=== PATIENT | female | born 1980 | race Caucasian/White ===

== ENCOUNTER 2020-08-31 09:54 | Outpatient (REF) | payer OTHER, SELFPAY ==
[2020-08-31 17:34] LABS: CT PCR NOT DETECTED (Not Detect.); NG PCR NOT DETECTED (Not Detect.)
[2020-09-03 03:21] LABS: HPV mRNA E6/E7 rflx Not Detected (Not Detected)
== END 2020-08-31 09:55 | disposition home or self-care (01) ==
LOC: HO.LAB 09:54
PROVIDERS: PCP Internal Medicine; Visit Provider Advanced Practice Midwife
DX: Z01.419 Encounter for gynecological examination (general) (routine) without abnormal findings (principal); Z11.3 Encounter for screening for infections with a predominantly sexual mode of transmission; Z11.51 Encounter for screening for human papillomavirus (HPV); Z20.2 Contact with and (suspected) exposure to infections with a predominantly sexual mode of transmission
CPT/HCPCS: 36415; 87491; 87591; 87624; 88142

== ENCOUNTER 2020-10-10 14:41 | Outpatient (REF) | payer OTHER, SELFPAY ==
--- NOTE | ~2020-10-10 | MM_ITS ---
EXAMINATION: MM DIAGNOSTIC DIGITAL BREAST TOMOSYNTHESIS, BILATERAL US DIAGNOSTIC ULTRASOUND BREAST, RIGHT CLINICAL INFORMATION: 40-year-old with pain upper right breast, recently subsiding. No palpable mass or discharge. No known family history breast cancer. No prior breast imaging. Bilateral tattoos. The lifetime risk of breast cancer based on the Tyrer-Cuzick Model is 12%. COMPARISON: None (current study represents initial baseline exam). TECHNIQUE: Digital breast tomosynthesis is performed in both the craniocaudal and mediolateral oblique views along with computer-aided detection (CAD). Synthesized 2D images are generated from the tomosynthesis. Additional bilateral 2-D MLO views are obtained. Ultrasound right breast is targeted to the area of clinical concern 11:00 through 2:00 position as well as additional imaging of the axilla. Grayscale imaging and color Doppler are performed without and with harmonics. FINDINGS: There are scattered areas of fibroglandular density (ACR BI-RADS breast composition Category b). There are no significant masses, abnormal calcifications, or other abnormalities. There is no skin thickening or coarsening of the Sukumar's ligaments. No duct ectasia. No suspicious finding. There is benign coarse high attenuation density within 2 otherwise unremarkable left axillary nodes, most likely related to tattoo pigment. Old granulomatous infection may have similar appearance. Ultrasound right breast demonstrates no cystic or solid mass, architectural abnormality, or focal duct ectasia. No skin thickening or edema tracking in soft tissue planes. No lymphadenopathy. Results are discussed with the patient at time of visit. MM/MM tomosynthesis diagnostic BI IMPRESSION: 1. No mammographic evidence of malignancy or focal acute inflammatory changes. 2. Probable tattoo pigment in 2 otherwise unremarkable left axillary nodes. Old granulomatous infection may have a similar appearance. 3. Unremarkable targeted right breast ultrasound. ASSESSMENT: BI-RADS 2: Benign RECOMMENDATION: 1. Patient's recent breast pain should be managed based on the clinical impression. 2. Otherwise, routine annual screening mammography. This patient's information was entered into a reminder system with a target due date for their next mammogram.
== END 2020-10-10 14:42 | disposition home or self-care (01) ==
LOC: HO.MAMMO 14:41
PROVIDERS: PCP Internal Medicine; Visit Provider Advanced Practice Midwife
DX: N64.4 Mastodynia (principal)
CPT/HCPCS: 76642; 77062; 77066

== ENCOUNTER 2022-08-04 12:47 | Emergency (ER) | payer OTHER, SELFPAY ==
--- NOTE | ~2022-08-04 | XR_ITS ---
EXAMINATION: XR chest 1V CLINICAL INFORMATION: Reason for Exam chest pain COMPARISON: None TECHNIQUE: XR chest 1V Tubes and lines: None Lungs and pleura: Mild patchy opacification over the left upper lobe possibly patchy infiltrate versus less commonly lung nodule. Lungs otherwise are clear. Costophrenic angles are sharp. Left parahilar opacity probably platelike atelectasis or prominent vessel. Heart and mediastinum: The mediastinum is within normal limits.. Bones/soft tissue: Skeletal structures included are normal for patient's age. XR/XR chest 1V IMPRESSION: * Mild patchy opacification over the left upper lobe possibly patchy infiltrate versus less commonly lung nodule. Attention to follow-up chest x-ray one month after completion of treatment recommended to ensure complete clearance and exclude underlying pathology. * Left parahilar opacity probably platelike atelectasis or prominent vessel. * No pleural effusion.
--- NOTE | 2022-08-04 12:49 | ED_ITS ---
HPI - General Adult General Chief complaint: General Medical <LELIA Disla - Last Filed: 08/04/22 12:50> Stated complaint: Chest Pain/ Back pain <LELIA Disla - Last Filed: 08/04/22 12:50> Time Seen by Provider: 08/04/22 13:24 <LELIA Disla - Last Filed: 08/04/22 12:50> Source: patient <Eddi Miles MD - Last Filed: 08/04/22 16:35> Mode of arrival: ambulatory <Eddi Miles MD - Last Filed: 08/04/22 16:35> Limitations: no limitations <Eddi Miles MD - Last Filed: 08/04/22 16:35> History of Present Illness HPI narrative: Patient woke up with chest and back pain. Denies injury. No prior history of chest pain, no recent EKG. Pain started at 4am. Worse with deep breathing. Pain is left sided, tight, feels like she cant take a deep breath. Patient currently pain free <Eddi Miles MD - Last Filed: 08/04/22 16:35> Onset (ago): hour(s) <Eddi Miles MD - Last Filed: 08/04/22 16:35> Location: chest <Eddi Miles MD - Last Filed: 08/04/22 16:35> Radiation: back <Eddi Miles MD - Last Filed: 08/04/22 16:35> Severity: mild <Eddi Miles MD - Last Filed: 08/04/22 16:35> Pain Consistency: intermittent <Eddi Miles MD - Last Filed: 08/04/22 16:35> Exacerbating factors: other (deep breathing) <Eddi Miles MD - Last Filed: 08/04/22 16:35> Related Data Home medications: Home Medications Medication Instructions Recorded Confirmed levonorgestrel 20 mcg/24 hours (8 intrauterine 03/24/21 yrs) 52 mg intrauterine device (Mirena) Previous Rx's Medication Instructions Recorded levofloxacin 500 mg tablet 500 mg PO DAILY 7 days #7 tabs 08/04/22 <LELIA Disla - Last Filed: 08/04/22 12:50> Allergies/adverse reactions: Allergies Allergy/AdvReac Type Severity Reaction Status Date / Time No Known Allergies Allergy Verified 08/31/20 10:39 <LELIA Disla - Last Filed: 08/04/22 12:50> Review of Systems Review of Systems: Yes all other systems are reviewed and are negative <Eddi Miles MD - Last Filed: 08/04/22 16:35> Cardiovascular: Cardiovascular: Reports chest pain <Eddi Miles MD - Last Filed: 08/04/22 16:35> Comments: worse with deep breathing <Eddi Miles MD - Last Filed: 08/04/22 16:35> PMFSH Past Medical History Surgical History: Surgical History Hx of tonsillectomy <LELIA Disla - Last Filed: 08/04/22 12:50> Social History Social History: Social History Alcohol intake: current Advance Directives: No Advance Directives Information Provided: Yes <LELIA Disla - Last Filed: 08/04/22 12:50> Physical Exam ED Vital Signs: Vital Signs - 24 hr 08/04/22 12:50 08/04/22 13:45 08/04/22 15:52 Temperature 97.8 F 99.0 F Pulse Rate 116 H 109 H 94 Respiratory Rate 18 14 14 Blood Pressure 140/93 H 157/103 H 134/85 Pulse Oximetry 98 98 98 Oxygen Delivery Method Room Air Room Air Room Air 08/04/22 16:00 Temperature Pulse Rate 94 Respiratory Rate 20 Blood Pressure 141/89 H Pulse Oximetry 97 Oxygen Delivery Method Room Air BMI result Body Mass Index 29.2 <LELIA Disla - Last Filed: 08/04/22 12:50> Vital Signs - 24 hr 08/04/22 12:50 08/04/22 13:45 08/04/22 15:52 Temperature 97.8 F 99.0 F Pulse Rate 116 H 109 H 94 Respiratory Rate 18 14 14 Blood Pressure 140/93 H 157/103 H 134/85 Pulse Oximetry 98 98 98 Oxygen Delivery Method Room Air Room Air Room Air 08/04/22 16:00 Temperature Pulse Rate 94 Respiratory Rate 20 Blood Pressure 141/89 H Pulse Oximetry 97 Oxygen Delivery Method Room Air BMI result Body Mass Index 29.2 <Eddi Miles MD - Last Filed: 08/04/22 16:35> Const General: healthy appearing <Eddi Miles MD - Last Filed: 08/04/22 16:35> Nutritional Appearance: average body habitus <Eddi Miles MD - Last Filed: 08/04/22 16:35> Orientation/consciousness: oriented to person and patient oriented x3 <Eddi Miles MD - Last Filed: 08/04/22 16:35> Limitations: no limitations <Eddi Miles MD - Last Filed: 08/04/22 16:35> HENMT Head: Yes normal to inspection <Eddi Miles MD - Last Filed: 08/04/22 16:35> Ears: external ears normal <Eddi Miles MD - Last Filed: 08/04/22 16:35> General nose exam: Normal external nose present <Eddi Miles MD - Last Filed: 08/04/22 16:35> Mouth: Normal oral and palatal mucosa present and oropharynx normal <Eddi Miles MD - Last Filed: 08/04/22 16:35> Throat: Yes posterior oropharynx normal <Eddi Miles MD - Last Filed: 08/04/22 16:35> Eyes General: appearance normal, both eyes and all related structures <Eddi Miles MD - Last Filed: 08/04/22 16:35> Neck Neck: Yes normal visual inspection <Eddi Miles MD - Last Filed: 08/04/22 16:35> Chest Chest palpation & inspection: normal inspection of the chest <Eddi Miles MD - Last Filed: 08/04/22 16:35> Resp Auscultation: clear to auscultation bilaterally <Eddi Miles MD - Last Filed: 08/04/22 16:35> Cardio Jugular venous distension: no JVD <Eddi Miles MD - Last Filed: 08/04/22 16:35> Rate: regular rate <Eddi Miles MD - Last Filed: 08/04/22 16:35> Rhythm: regular rhythm <Eddi Miles MD - Last Filed: 08/04/22 16:35> Heart sounds: S1 normal heart sound present and S2 normal heart sound present <Eddi Miles MD - Last Filed: 08/04/22 16:35> GI Inspection: Yes normal to inspection <Eddi Miles MD - Last Filed: 08/04/22 16:35> Palpation (GI): Soft to palpation, nontender and No hepatosplenomegaly present <Eddi Miles MD - Last Filed: 08/04/22 16:35> Auscultation: normal bowel sounds <Eddi Miles MD - Last Filed: 08/04/22 16:35> General: Yes no CVA tenderness <Eddi Miles MD - Last Filed: 08/04/22 16:35> Back/Spine/Pelvis Back: no CVA tenderness <Eddi Miles MD - Last Filed: 08/04/22 16:35> Skin General skin exam: no rashes or lesions noted <Eddi Miles MD - Last Filed: 08/04/22 16:35> Neuro General: oriented to person and patient oriented x3 <Eddi Miles MD - Last Filed: 08/04/22 16:35> Cranial nerves: Yes CN's II-XII intact bilaterally <Eddi Miles MD - Last Filed: 08/04/22 16:35> Motor exam (neuro): 5/5 motor strength present throughout <Eddi Miles MD - Last Filed: 08/04/22 16:35> Extrem General: Yes normal to inspection <Eddi Miles MD - Last Filed: 08/04/22 16:35> Psych Appearance: grossly normal <Eddi Miles MD - Last Filed: 08/04/22 16:35> Course Course Course Narrative: RME performed by Silvia El PA-C. Patient is a 41 year old female presenting to the emergency department with chest and back pain. Patient states that the pain started in the middle of the night last night and she is concerned she pulled something in her back by coughing. CXR, EKG, labs ordered. Patient placed back in the waiting room pending room availability and results. <LELIA Disla - Last Filed: 08/04/22 12:50> Reevaluation(s) Reevaluation #1: With WBC of 16 and left upper lobe infiltrate I wll place on levaquin for pneumonia. Negative troponins despite abnormal EKG will dc home <Eddi Miles MD - Last Filed: 08/04/22 16:35> Time: 16:32 <Eddi iMles MD - Last Filed: 08/04/22 16:35> Medications Administered Discontinued Medications Generic Name Dose Route Start Last Admin Trade Name Freq PRN Reason Stop Dose Admin Aspirin 162 mg 08/04/22 13:37 08/04/22 13:43 Aspirin Enteric Coated 81 Mg Tablet. PO 08/04/22 13:38 162 mg ONCE ONE Administration Levofloxacin 500 mg 08/04/22 15:54 08/04/22 16:20 Levofloxacin 500 Mg Tablet PO 08/04/22 15:55 500 mg ONCE ONE Administration <LELIA Disla - Last Filed: 08/04/22 12:50> Medications Administered Discontinued Medications Generic Name Dose Route Start Last Admin Trade Name Freq PRN Reason Stop Dose Admin Aspirin 162 mg 08/04/22 13:37 08/04/22 13:43 Aspirin Enteric Coated 81 Mg Tablet. PO 08/04/22 13:38 162 mg ONCE ONE Administration Levofloxacin 500 mg 08/04/22 15:54 08/04/22 16:20 Levofloxacin 500 Mg Tablet PO 08/04/22 15:55 500 mg ONCE ONE Administration <Eddi Miles MD - Last Filed: 08/04/22 16:35> Medical Decision Making Differential Diagnosis Differential Diagnoses: The differential diagnosis associated with the presentation includes (chest pain, acute coronary syndrome, pneumonia, PE were all considered) <Eddi Miles MD - Last Filed: 08/04/22 16:35> Admission/Observation Consideration of admission/observation: Escalation of care including admission/observation considered (patient with ST depression V3-V6 so admission was considered upon completion of her EKG) <Eddi Miles MD - Last Filed: 08/04/22 16:35> Lab Data MDM Lab Attestation statement: I reviewed the patient's lab results. <Eddi Miles MD - Last Filed: 08/04/22 16:35> Result Diagrams: 08/04/22 13:15 08/04/22 13:15 <LELIA Disla - Last Filed: 08/04/22 12:50> Labs: Lab Results 08/04/22 08/04/22 08/04/22 Range/Units 13:15 13:15 13:15 WBC 16.6 H (4.8-10.8) X10*3/uL RBC 3.93 L (4.20-5.50) X10*6/uL Hgb 13.1 (12.0-16.0) g/dl Hct 37.7 (37.0-47.0) % MCV 95.9 (80.0-98.0) fL MCH 33.3 H (27.0-33.0) pg MCHC 34.7 (31.0-35.0) g/dl RDW 12.2 (11.0-16.0) % Plt Count 224 (160-400) X10*3/uL MPV 8.8 L (9.4-12.3) fL Immature Gran % (Auto) 0.4 (0.0-0.4) % Neut % (Auto) 80.4 H (45-73) % Lymph % (Auto) 8.5 L (20-40) % Burnet % (Auto) 10.1 (2-11) % Eos % (Auto) 0.1 (0-4) % Baso % (Auto) 0.5 (0-2) % Lymph # (Auto) 1.4 (1.2-4.9) X10*3/uL Burnet # (Auto) 1.7 H (0.1-1.2) X10*3/uL Eos # (Auto) 0.0 (0.0-0.4) X10*3/uL Baso # (Auto) 0.1 (0.0-0.2) X10*3/uL Abs Immat Gran (auto) 0.07 H (0.00-0.03) X10*3/uL Absolute Neuts (auto) 13.4 H (2.0-8.3) x10*3/uL Absolute Nucleated RBC 0.000 (0.0-0.012) X10*3/uL Nucleated RBC % (auto) 0.0 (0.0-0.2) /100WBC Smear Tech's Comments VERIFIED D-Dimer High Sensitivty NG/ML Sodium 140 (135-145) mmol/L Potassium 3.5 (3.3-5.1) mmol/L Chloride 104 (96-108) mmol/L Carbon Dioxide 22 (22-29) mmol/L Anion Gap 18 (12-20) BUN 7 L (9-16) mg/dL Creatinine 0.66 (0.5-1.4) mg/dL Estim Creat Clear Calc 108.6 Estimated GFR > 60 Random Glucose 105 (60-115) mg/dL Calcium 9.2 (8.4-10.2) mg/dL Magnesium 1.7 (1.6-2.6) mg/dL Total Bilirubin 0.9 (0.0-1.0) mg/dL AST 30 (5-31) U/L ALT 33 H (0-31) U/L Alkaline Phosphatase 114 (39-117) U/L Troponin I High Sens < 3.5 (<3.5-17.0) ng/L Total Protein 6.9 (6.5-8.0) g/dL Albumin 4.2 (3.5-5.0) g/dL COVID-19 ([facility]) (Negative) COVID-19 Clin Com 08/04/22 08/04/22 08/04/22 Range/Units 13:15 15:57 15:57 WBC (4.8-10.8) X10*3/uL RBC (4.20-5.50) X10*6/uL Hgb (12.0-16.0) g/dl Hct (37.0-47.0) % MCV (80.0-98.0) fL MCH (27.0-33.0) pg MCHC (31.0-35.0) g/dl RDW (11.0-16.0) % Plt Count (160-400) X10*3/uL MPV (9.4-12.3) fL Immature Gran % (Auto) (0.0-0.4) % Neut % (Auto) (45-73) % Lymph % (Auto) (20-40) % Burnet % (Auto) (2-11) % Eos % (Auto) (0-4) % Baso % (Auto) (0-2) % Lymph # (Auto) (1.2-4.9) X10*3/uL Burnet # (Auto) (0.1-1.2) X10*3/uL Eos # (Auto) (0.0-0.4) X10*3/uL Baso # (Auto) (0.0-0.2) X10*3/uL Abs Immat Gran (auto) (0.00-0.03) X10*3/uL Absolute Neuts (auto) (2.0-8.3) x10*3/uL Absolute Nucleated RBC (0.0-0.012) X10*3/uL Nucleated RBC % (auto) (0.0-0.2) /100WBC Smear Tech's Comments D-Dimer High Sensitivty 166 NG/ML Sodium (135-145) mmol/L Potassium (3.3-5.1) mmol/L Chloride (96-108) mmol/L Carbon Dioxide (22-29) mmol/L Anion Gap (12-20) BUN (9-16) mg/dL Creatinine (0.5-1.4) mg/dL Estim Creat Clear Calc Estimated GFR Random Glucose (60-115) mg/dL Calcium (8.4-10.2) mg/dL Magnesium (1.6-2.6) mg/dL Total Bilirubin (0.0-1.0) mg/dL AST (5-31) U/L ALT (0-31) U/L Alkaline Phosphatase (39-117) U/L Troponin I High Sens 5.9 D (<3.5-17.0) ng/L Total Protein (6.5-8.0) g/dL Albumin (3.5-5.0) g/dL COVID-19 ([facility]) Negative (Negative) COVID-19 Clin Com See Note <LELIA Disla - Last Filed: 08/04/22 12:50> Lab Results 08/04/22 08/04/22 08/04/22 Range/Units 13:15 13:15 13:15 WBC 16.6 H (4.8-10.8) X10*3/uL RBC 3.93 L (4.20-5.50) X10*6/uL Hgb 13.1 (12.0-16.0) g/dl Hct 37.7 (37.0-47.0) % MCV 95.9 (80.0-98.0) fL MCH 33.3 H (27.0-33.0) pg MCHC 34.7 (31.0-35.0) g/dl RDW 12.2 (11.0-16.0) % Plt Count 224 (160-400) X10*3/uL MPV 8.8 L (9.4-12.3) fL Immature Gran % (Auto) 0.4 (0.0-0.4) % Neut % (Auto) 80.4 H (45-73) % Lymph % (Auto) 8.5 L (20-40) % Burnet % (Auto) 10.1 (2-11) % Eos % (Auto) 0.1 (0-4) % Baso % (Auto) 0.5 (0-2) % Lymph # (Auto) 1.4 (1.2-4.9) X10*3/uL Burnet # (Auto) 1.7 H (0.1-1.2) X10*3/uL Eos # (Auto) 0.0 (0.0-0.4) X10*3/uL Baso # (Auto) 0.1 (0.0-0.2) X10*3/uL Abs Immat Gran (auto) 0.07 H (0.00-0.03) X10*3/uL Absolute Neuts (auto) 13.4 H (2.0-8.3) x10*3/uL Absolute Nucleated RBC 0.000 (0.0-0.012) X10*3/uL Nucleated RBC % (auto) 0.0 (0.0-0.2) /100WBC Smear Tech's Comments VERIFIED D-Dimer High Sensitivty NG/ML Sodium 140 (135-145) mmol/L Potassium 3.5 (3.3-5.1) mmol/L Chloride 104 (96-108) mmol/L Carbon Dioxide 22 (22-29) mmol/L Anion Gap 18 (12-20) BUN 7 L (9-16) mg/dL Creatinine 0.66 (0.5-1.4) mg/dL Estim Creat Clear Calc 108.6 Estimated GFR > 60 Random Glucose 105 (60-115) mg/dL Calcium 9.2 (8.4-10.2) mg/dL Magnesium 1.7 (1.6-2.6) mg/dL Total Bilirubin 0.9 (0.0-1.0) mg/dL AST 30 (5-31) U/L ALT 33 H (0-31) U/L Alkaline Phosphatase 114 (39-117) U/L Troponin I High Sens < 3.5 (<3.5-17.0) ng/L Total Protein 6.9 (6.5-8.0) g/dL Albumin 4.2 (3.5-5.0) g/dL COVID-19 ([facility]) (Negative) COVID-19 Clin Com 08/04/22 08/04/22 08/04/22 Range/Units 13:15 15:57 15:57 WBC (4.8-10.8) X10*3/uL RBC (4.20-5.50) X10*6/uL Hgb (12.0-16.0) g/dl Hct (37.0-47.0) % MCV (80.0-98.0) fL MCH (27.0-33.0) pg MCHC (31.0-35.0) g/dl RDW (11.0-16.0) % Plt Count (160-400) X10*3/uL MPV (9.4-12.3) fL Immature Gran % (Auto) (0.0-0.4) % Neut % (Auto) (45-73) % Lymph % (Auto) (20-40) % Burnet % (Auto) (2-11) % Eos % (Auto) (0-4) % Baso % (Auto) (0-2) % Lymph # (Auto) (1.2-4.9) X10*3/uL Burnet # (Auto) (0.1-1.2) X10*3/uL Eos # (Auto) (0.0-0.4) X10*3/uL Baso # (Auto) (0.0-0.2) X10*3/uL Abs Immat Gran (auto) (0.00-0.03) X10*3/uL Absolute Neuts (auto) (2.0-8.3) x10*3/uL Absolute Nucleated RBC (0.0-0.012) X10*3/uL Nucleated RBC % (auto) (0.0-0.2) /100WBC Smear Tech's Comments D-Dimer High Sensitivty 166 NG/ML Sodium (135-145) mmol/L Potassium (3.3-5.1) mmol/L Chloride (96-108) mmol/L Carbon Dioxide (22-29) mmol/L Anion Gap (12-20) BUN (9-16) mg/dL Creatinine (0.5-1.4) mg/dL Estim Creat Clear Calc Estimated GFR Random Glucose (60-115) mg/dL Calcium (8.4-10.2) mg/dL Magnesium (1.6-2.6) mg/dL Total Bilirubin (0.0-1.0) mg/dL AST (5-31) U/L ALT (0-31) U/L Alkaline Phosphatase (39-117) U/L Troponin I High Sens 5.9 D (<3.5-17.0) ng/L Total Protein (6.5-8.0) g/dL Albumin (3.5-5.0) g/dL COVID-19 ([facility]) Negative (Negative) COVID-19 Clin Com See Note <Eddi Miles MD - Last Filed: 08/04/22 16:35> Independent Interpretation I performed an independent interpretation of an: Plain X-Ray (CXR: no infiltrate) <Eddi Miles MD - Last Filed: 08/04/22 16:35> Radiology Impression Discussion of test interpretation with radiology: I have reviewed the radiologist's reading. (radiologist read the CXR as left upper lobe infiltrate) <Eddi Miles MD - Last Filed: 08/04/22 16:35> Discharge Plan Discharge Clinical Impression: Pneumonia, Abnormal ECG <LELIA Disla - Last Filed: 08/04/22 12:50> Patient Disposition: Home, Self-Care <LELIA Disla - Last Filed: 08/04/22 12:50> Instructions: Community Acquired Pneumonia (ED) <LELIA Disla - Last Filed: 08/04/22 12:50> Prescriptions: New levofloxacin 500 mg tablet 500 mg PO DAILY 7 Days Qty: 7 0RF No Action Mirena 20 mcg/24 hours (6 yrs) 52 mg intrauterine device intrauterine <LELIA Disla - Last Filed: 08/04/22 12:50> Referrals: Laila Eller PA-C [Primary Care Provider] - 5 days <LELIA Disla - Last Filed: 08/04/22 12:50>
[2022-08-04 12:50] VITALS: BP 140/93; PULSE 116; RESP 18; TEMP 36.6; O2SAT 98; BMI 29.2
--- NOTE | 2022-08-04 12:51 | ECG_ITS ---
Test Reason : CHEST PAIN Blood Pressure : / mmHG Vent. Rate : 115 BPM Atrial Rate : 115 BPM P-R Int : 126 ms QRS Dur : 084 ms QT Int : 326 ms P-R-T Axes : 030 016 -39 degrees QTc Int : 450 ms Sinus tachycardia T wave abnormality, consider inferior ischemia and anterior ischemia Abnormal ECG No previous ECGs available Referred By: Silvia El Electronically Signed By:CHRIS WILD
[2022-08-04 13:25] LABS: Basophils Absolute Auto 0.1 X10*3/uL (0.0-0.2); Basophils Percent Auto 0.5 % (0-2); Eosinophils Percent Auto 0.1 % (0-4); Hematocrit 37.7 % (37.0-47.0); Hemoglobin 13.1 g/dl (12.0-16.0); Imm Gran Abs Auto 0.07 X10*3/uL (0.00-0.03); Imm Gran Pct Auto 0.4 % (0.0-0.4); Lymphocytes Absolute Auto 1.4 X10*3/uL (1.2-4.9); Lymphocytes Percent Auto 8.5 % (20-40); MANUAL DIFF FLAG SCAN; Mean Corpuscular HGB Conc 34.7 g/dl (31.0-35.0); Mean Corpuscular Hemoglobin 33.3 pg (27.0-33.0); Mean Corpuscular Volume 95.9 fL (80.0-98.0); Mean Platelet Volume 8.8 fL (9.4-12.3); Monocytes Absolute Auto 1.7 X10*3/uL (0.1-1.2); Monocytes Percent Auto 10.1 % (2-11); Neutrophils Absolute Auto 13.4 x10*3/uL (2.0-8.3); Neutrophils Percent Auto 80.4 % (45-73); Platelet Count 224 X10*3/uL (160-400); Red Blood Count 3.93 X10*6/uL (4.20-5.50); Red Cell Distribution Width 12.2 % (11.0-16.0); SCAN SMEAR FLAG 1; White Blood Count 16.6 X10*3/uL (4.8-10.8)
[2022-08-04 13:42] LABS: Alanine Aminotransferase 33 U/L (0-31); Albumin Level 4.2 g/dL (3.5-5.0); Alkaline Phosphatase 114 U/L (39-117); Anion Gap 18 (12-20); Aspartate Amino Transferase 30 U/L (5-31); Bilirubin Total 0.9 mg/dL (0.0-1.0); Blood Urea Nitrogen 7 mg/dL (9-16); Calcium 9.2 mg/dL (8.4-10.2); Carbon Dioxide 22 mmol/L (22-29); Chloride 104 mmol/L (96-108); Creatinine Clr Calc Pharmacy 108.6; Estimated Glomerular Filt Rate > 60; Glucose Random 105 mg/dL (60-115); Magnesium 1.7 mg/dL (1.6-2.6); Potassium 3.5 mmol/L (3.3-5.1); Sodium 140 mmol/L (135-145); Total Protein 6.9 g/dL (6.5-8.0)
[2022-08-04 13:43] LABS: SLIDE REVIEW VERIFIED
[2022-08-04] MEDS: Aspirin Enteric Coated 81 MG TABLET.DR 162 MG PO (13:43)
[2022-08-04 13:45] VITALS: BP 157/103; PULSE 109; RESP 14; O2SAT 98
[2022-08-04 13:53] LABS: Troponin-I High Sensitivity < 3.5 ng/L (<3.5-17.0)
[2022-08-04 14:01] LABS: COVID-19 Test Negative (Negative); IDNOW Serial# 6674DD1D
[2022-08-04 15:52] VITALS: BP 134/85; PULSE 94; RESP 14; TEMP 37.2; O2SAT 98
[2022-08-04 16:00] VITALS: BP 141/89; PULSE 94; RESP 20; O2SAT 97
[2022-08-04 16:12] LABS: D Dimer High Sensitivity 166 NG/ML
[2022-08-04] MEDS: levoFLOXacin 500 MG TABLET PO (16:20)
[2022-08-04 16:31] LABS: Troponin-I High Sensitivity 5.9 ng/L (<3.5-17.0)
== END 2022-08-04 16:54 | disposition home or self-care (01) ==
PROVIDERS: Physician Assistant Medical; Emergency Provider Emergency Medicine; PCP Physician Assistant Medical
DX: J18.9 Pneumonia, unspecified organism (principal); R94.31 Abnormal electrocardiogram [ECG] [EKG]; Z20.822 Contact with and (suspected) exposure to COVID-19
CPT/HCPCS: 36415; 71045; 80053; 83735; 84484; 85025; 85379; 87635; 93005; 99283; 99284